=== PATIENT | male | born 1965 | race Caucasian/White ===

== ENCOUNTER 2017-07-01 16:13 | Emergency (ER) | payer MEDICAID ==
[~2017-07-01] VITALS: Ht 160 cm; Wt 78.0 kg
[2017-07-01 16:17] VITALS: Ht 160 cm; Wt 78.0 kg
[2017-07-01 19:13] LABS: BASOPHILS % 0.4 % (0.0-2.0); EOSINOPHILS # 0.5 10^3/ul (0.0-0.5); EOSINOPHILS % 4.3 % (0.0-7.0); HEMATOCRIT 47.4 % (42.0-52.0); HEMOGLOBIN 15.4 g/dl (14.0-18.0); LYMPHOCYTES % 28.4 % (15.0-51.0); MEAN CORPUSCULAR HEMOGLOBIN 29.3 pg (29.0-33.0); MEAN CORPUSCULAR HGB CONC 32.5 g/dl (32.0-37.0); MEAN CORPUSCULAR VOLUME 90.3 fl (82.0-101.0); MEAN PLATELET VOLUME 10.9 fl (7.4-10.4); MONOCYTE # 0.7 10^3/ul (0.3-0.9); MONOCYTES % 6.6 % (0.0-11.0); NEUTROPHIL # 6.3 10^3/ul (1.6-7.5); NEUTROPHILS % 59.9 % (39.0-77.0); PLATELET COUNT 294 10^3/UL (140-415); RED BLOOD COUNT 5.25 10^6/ul (4.70-6.10); RED CELL DISTRIBUTION WIDTH 13.3 % (11.5-14.5); WHITE BLOOD COUNT 10.6 10^3/ul (4.8-10.8)
--- NOTE | 2017-07-01 19:19 | ERD ---
ER Documentation Chief Complaint Date/Time DATE: 07/01/17 TIME: 19:02 Chief Complaint bay today, back pain rad left leg intermittent x 1 week HPI 52-year-old male presents here to emergency department for complaints of multiple complaints, patient is complaining of headache for 1 week, lower back pain neck pain, lower back pain radiates to the left lower leg, that it can radiate to the left arm. Patient does admit to be having to go through stress lately. Patient's complaint of headache throbbing pain, back pain throbbing pain, lower back pain throbbing pain, 6/10 scale, worse upon movement of affected joints. Patient denies any loss of consciousness. Patient denies any dizziness. Patient denies any blurred vision. Patient denies any numbness or tingling. ROS All systems reviewed and are negative except as per history of present illness. Medications Home Meds Reported Medications [none] Unknown Strength No Conflict Check 07/01/17 Allergies Allergies: Coded Allergies: No Known Allergy (Unverified , 07/01/17) PMhx/Soc Medical and Surgical Hx: pt denies Medical Hx, pt denies Surgical Hx History of Surgery: No Anesthesia Reaction: No Hx Neurological Disorder: No Hx Respiratory Disorders: No Hx Cardiac Disorders: No Hx Psychiatric Problems: No Hx Miscellaneous Medical Probl: No Hx Alcohol Use: No Hx Substance Use: No Hx Tobacco Use: Yes Smoking Status: Current some day smoker FmHx Family History: No coronary disease, No diabetes, No other Physical Exam Vitals Vital Signs Date Time Temp Pulse Resp B/P Pulse Ox O2 Delivery O2 Flow Rate FiO2 07/01/17 16:17 98.1 70 18 124/76 99 Physical Exam GENERAL: The patient is well developed and appropriate for usual state of health, in no apparent distress. CHEST: Clear to auscultation bilaterally. There are no rales, wheezes or rhonchi. HEART: Regular rate and rhythm. No murmurs, clicks, rubs or gallops. No S3 or S4. ABDOMEN: Soft, nontender and nondistended. Good bowel sounds. No rebound or guarding. No gross peritonitis. No gross organomegaly or masses. No Guzman sign or McBurney point tenderness. BACK: No midline or flank tenderness. EXTREMITIES: Equal pulses bilaterally. There is no peripheral clubbing, cyanosis or edema. No focal swelling or erythema. Full range of motion. Grossly neurovascularly intact. NEURO: Alert and oriented. Cranial nerves 2-12 intact. Motor strength in all 4 extremities with 5/5 strength. Sensation grossly intact. Normal speech and gait. SKIN: There is no apparent rash or petechia. The skin is warm and dry. HEMATOLOGIC AND LYMPHATIC: There is no evidence of excessive bruising or lymphedema. No gross cervical, axillary, or inguinal lymphadenopathy. Result Diagram: 07/01/17189907/01/171899 Results 24 hrs Laboratory Tests Test 07/01/17 19:00 White Blood Count 10.610^3/ul Red Blood Count 5.2510^6/ul Hemoglobin 15.4g/dl Hematocrit 47.4% Mean Corpuscular Volume 90.3fl Mean Corpuscular Hemoglobin 29.3pg Mean Corpuscular Hemoglobin Concent 32.5g/dl Red Cell Distribution Width 13.3% Platelet Count 59135^3/UL Mean Platelet Volume 10.9fl Neutrophils % 59.9% Lymphocytes % 28.4% Monocytes % 6.6% Eosinophils % 4.3% Basophils % 0.4% Nucleated Red Blood Cells % 0.0/100WBC Neutrophils # 6.310^3/ul Lymphocytes # 3.010^3/ul Monocytes # 0.710^3/ul Eosinophils # 0.510^3/ul Basophils # 0.010^3/ul Nucleated Red Blood Cells # 0.010^3/ul Sodium Level 141mmol/L Potassium Level 4.2mmol/L Chloride Level 103mmol/L Carbon Dioxide Level 28mmol/L Anion Gap 14 Blood Urea Nitrogen 18mg/dl Creatinine 0.79mg/dl Glucose Level 95mg/dl Calcium Level 9.4mg/dl Total Bilirubin 0.4mg/dl Direct Bilirubin 0.00mg/dl Indirect Bilirubin 0.4mg/dl Aspartate Amino Transf (AST/SGOT) 23IU/L Alanine Aminotransferase (ALT/SGPT) 44IU/L Alkaline Phosphatase 75IU/L Troponin I < 0.012ng/ml Total Protein 8.1g/dl Albumin 4.7g/dl Globulin 3.40g/dl Albumin/Globulin Ratio 1.38 EKG was done, read by me and is sinus bradycardia at a rate of 59, normal axis, there is no ST changes or changes in the EKG that indicates any cardiac emergencies at this time. Patient's EKG was also reviewed by Dr. Blakely. Impression: no acute findings on EKG PROCEDURE: CT brain without contrast CLINICAL INDICATION: Headache TECHNIQUE: CT of the brain without contrast was performed on a multidetector CT scanner, with multiplanar reformats. One or more of the following dose reduction techniques were used: Automated exposure control, adjustment in mA and / or kV according to patient size, use of iterative reconstructive technique. CTDIvol = 44 mGy; DLP = 720 mGy-cm. COMPARISON: None available FINDINGS: No acute intracranial hemorrhage is identified. No extra-axial fluid collection is seen. There is no mass effect. No midline shift is identified. Ventricles and sulci are within normal limits for size and configuration. The density of the brain is within normal limits. Thompson-white differentiation is preserved. Calvarium and skull base are intact. Mastoid air cells and imaged paranasal sinuses grossly clear. 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 IMPRESSION: Unremarkable noncontrast CT of the brain. RPTAT: HESO .Tae Garcia MD, MD Date Time Electronically viewed and signed by .Tae Garcia MD, MD on 07/01/2017 20:25 .O/ CC: PELON BULLOCK NP PROCEDURE: CT cervical spine without contrast. CLINICAL INDICATION: Neck pain radiating down left arm TECHNIQUE: CT of the cervical spine without contrast was performed on a multidetector CT scanner, with multiplanar reformats. One or more of the following dose reduction techniques were used: Automated exposure control, adjustment in mA and / or kV according to patient size, use of iterative reconstructive technique. CTDIvol = 22 mGy and DLP = 574 mGy-cm. COMPARISON: None available. FINDINGS: No fracture or dislocation is identified. There is straightening of the lordosis of the cervical spine. Alignment is intact. The vertebral bodies are maintained in height. Mild anterior atlantoaxial joint degenerative changes are seen. There are anterior osteophytes C4-5 through C6-7. There is mild disc space narrowing at C5-6 and C6-7. C2-3: There is mild posterior disc bulging. No central canal stenosis or foraminal narrowing is identified. C3-4: There is a mild posterior disc osteophyte. No central canal stenosis or foraminal narrowing is identified. C4-5: There is a 3 mm central disc protrusion with mild central canal stenosis identified. No foraminal narrowing is identified. C5-6: There is a posterior disk/osteophyte with mild central canal stenosis identified. There are uncovertebral osteophytes and facet arthropathy with mild right, moderate to severe left foraminal narrowing. C6-7: There is a posterior disk/osteophyte with mild central canal stenosis identified. There are uncovertebral osteophytes and facet arthropathy with mild left foraminal narrowing. C7-T1: No disc bulge or herniation is identified. There is no central canal stenosis or foraminal narrowing. IMPRESSION: 1. No fracture/dislocation. 2. Cervical spondylosis/degenerative enthesopathy as described above. 3. Mild central canal stenosis C3-4, C4-5, C5-6. 4. Foraminal narrowing detailed above, most pronounced, moderate to severe at C5-6 on the left. RPTAT: HESO .Tae Garcia MD, Date Time Electronically viewed and signed by .Tae Garcia MD, on 07/01/2017 20:32 .O/ CC: PELON BULLOCK [employer] PROCEDURE: XR Chest. CLINICAL INDICATION: Left arm pain and shortness of breath TECHNIQUE: Single AP view of the chest were obtained COMPARISON: None FINDINGS: Low lung volumes accentuate the intrathoracic structures The heart and mediastinum are within normal limits. The pulmonary vasculature are unremarkable. The aorta is grossly unremarkable. There is no lung consolidation, pleural effusion or pneumothorax. Degenerative changes are seen within the thoracic spine. There is no acute osseous abnormality. IMPRESSION: No acute disease. Low lung volumes. RPTAT: AA .Olman Call MD, MD Date Time Electronically viewed and signed by .Olman Call MD, MD on 07/01/2017 20:25 .J/ CC: PELON BULLOCK NP PROCEDURE: CT Lumbar Spine. CLINICAL INDICATION: Lower back pain radiating down left side. TECHNIQUE: Noncontrast CT of the lumbar spine was performed with multiplanar reformatted images generated from the axial acquired data. The administered radiation dose was CTDI vol = 38.52 mGy, DLP = 1040 21.13 mGy-cm. One or more of the following dose reduction techniques were used: Automated exposure control , Adjustment of the mA and/or kV according to patient size, or Use of iterative reconstruction technique. COMPARISON: There are no similar studies submitted for comparison. FINDINGS: There is normal lumbar lordosis. The vertebral body heights are maintained. There is no destructive osseous lesion. There is no acute fracture. The anterior posterior diameter of the spinal canal is 11 mm compatible with congenital spinal canal stenosis. T12-L1 : There is moderate disc space narrowing. There is no disc herniation or spinal canal stenosis. There is no bilateral foraminal stenosis. L1-L2 : There is moderate disc space narrowing. There is 1 mm broad-based disc bulge and mild bilateral facet arthropathy without spinal canal or bilateral foraminal stenosis. L2-L3 : There is severe disc space narrowing. There is 1 mm retrolisthesis with a 4 mm broad-based disc bulge with mild bilateral facet arthropathy and ligamentum flavum infolding causing moderate spinal canal stenosis. There is moderate bilateral foraminal stenosis contacting the exiting bilateral L2 nerve roots. L3-L4 : There is moderate disc space narrowing. There is trace retrolisthesis with a 4 mm broad-based disc bulge and mild by facet arthropathy ligamentum flavum infolding causing moderate spinal canal stenosis. There is mild to moderate left with severe right foraminal stenosis impinging the exiting right L3 nerve root. L4-L5 : There is moderate disc space narrowing. There is trace retrolisthesis with a 3 mm circumferential disc osteophyte complex with moderate bilateral facet arthropathy ligamentum flavum infolding causing moderate spinal canal stenosis. There is moderate to severe bilateral foraminal stenosis impinging the exiting bilateral L4 nerve roots. L5-S1 : There is moderate to severe disc space narrowing and vacuum disc phenomenon. There is a 4 mm circumferential disc osteophyte complex mildly effacing the bilateral lateral recess with moderate bilateral facet arthropathy causing moderate spinal canal stenosis. There is severe bilateral foraminal stenosis impinging the exiting bilateral L5 nerve roots. The sacroiliac joints are intact. IMPRESSION: 1. No acute fracture. 2. Congenital spinal canal stenosis. 3. Multilevel bilateral foraminal stenosis contacting the exiting bilateral L2, impinging the exiting right L3, impinging the exiting bilateral for, impinging the exiting bilateral L5 nerve roots as detailed above. 4. Moderate L2-L3 to L5-S1 spinal canal stenosis. Further findings as detailed above. RPTAT: HVF .Rishabh Matthew MD, MD Date Time Electronically viewed and signed by .Rishabh Matthew MD, MD on 07/01/2017 20:29 .F/ CC: PELON BULLOCK [employer] Procedures/MDM Medical Decision Making: Patient symptoms nonspecific at this time, most likely pain in the left arm and the left lower leg from degenerative disc disease noted , possible nerve pain. there is low suspicion for cardiopulmonary emergencies at this time. Patient has low risk factors. EKG is normal, there is no changes in the EKG that indicates cardiac emergencies. Chest X-ray does not show cardiopulmonary emergencies at this time. There is low suspicion for aortic aneurysm, myocardial infarction, pneumothorax, pleural effusion, pulmonary embolism, or any other cardiopulmonary emergencies at this time. Cardiac markers are normal. Patient symptoms of headache are consistent with migraine headache, possible tension headache. There is low suspicion for neurological emergencies at this time since patients neurologic exam is normal. Patient did not have any altered level consciousness, vomiting, changes in balance or memory and did not have any head injury. Patients CT scan of the head does not show any neurological emergencies at this time. Patient was given for gabapentin, ibuprofen, [place], is advised to follow-up with primary care doctor in 2-3 days for reevaluation of symptoms. Patient was advised to return to emergency department for any worsening symptoms. Dispostion: Home. Stable Disclaimer: Inadvertent spelling and grammatical errors are likely due to EHR/ dictation software use and do not reflect on the overall quality of patient care. Also, please note that the electronic time recorded on this note does not necessarily reflect the actual time of the patient encounter. Dispostion: Home. Stable Disclaimer: Inadvertent spelling and grammatical errors are likely due to EHR/ dictation software use and do not reflect on the overall quality of patient care. Also, please note that the electronic time recorded on this note does not necessarily reflect the actual time of the patient encounter. Departure Diagnosis: Primary Impression: Cervical radiculopathy Additional Impressions: Back pain Back pain location: low back pain Chronicity: acute Back pain laterality: bilateral Sciatica presence: with sciatica Sciatica laterality: sciatica of left side Qualified Code: M54.42 - Acute bilateral low back pain with left- sided sciatica Degenerative disc disease Spinal region: lumbosacral Qualified Code: M51.37 - Degeneration of intervertebral disc of lumbosacral region Head ache Headache type: unspecified Headache chronicity pattern: acute headache Intractability: not intractable Qualified Code: R51 - Acute nonintractable headache, unspecified headache type Condition: Stable Patient Instructions: Back Pain W/ Sciatica, Degenerative Disk Disease, Radiculopathy, Cervical, Self-Care for Headaches PELON BULLOCK NP Jul 01, 2017 19:12
[2017-07-01 19:32] LABS: ALANINE AMINOTRANSFERASE 44 IU/L (13-69); ALBUMIN 4.7 g/dl (3.3-4.9); ALBUMIN/GLOBULIN RATIO 1.38; ALKALINE PHOSPHATASE 75 IU/L (42-121); ANION GAP 14 (8-16); ASPARTATE AMINO TRANSFERASE 23 IU/L (15-46); BILIRUBIN,INDIRECT 0.4 mg/dl (0-1.1); BILIRUBIN,TOTAL 0.4 mg/dl (0.2-1.3); BLOOD UREA NITROGEN 18 mg/dl (7-20); CALCIUM 9.4 mg/dl (8.4-10.2); CARBON DIOXIDE 28 mmol/L (21-31); CHLORIDE 103 mmol/L (97-110); CREATININE 0.79 mg/dl (0.61-1.24); GLUCOSE 95 mg/dl (70-220); POTASSIUM 4.2 mmol/L (3.5-5.1); SODIUM 141 mmol/L (135-144); TOTAL PROTEIN 8.1 g/dl (6.1-8.1)
[2017-07-01 19:43] LABS: TROPONIN-I < 0.012 ng/ml (0.00-0.12)
--- NOTE | 2017-07-01 20:25 | RADRPT ---
PROCEDURE: XR Chest. CLINICAL INDICATION: Left arm pain and shortness of breath TECHNIQUE: Single AP view of the chest were obtained COMPARISON: None FINDINGS: Low lung volumes accentuate the intrathoracic structures The heart and mediastinum are within normal limits. The pulmonary vasculature are unremarkable. The aorta is grossly unremarkable. There is n o lung consolidation, pleural effusion or pneumothorax. Degenerative changes are seen within the th oracic spine. There is no acute osseous abnormality. IMPRESSION: No acute disease. Low lung volumes. RPTAT: AA .Olman Call MD, Date Time Electronically viewed and signed by .Olman Call MD, MD on 07/01/2017 20:25 .Roz/
--- NOTE | 2017-07-01 20:26 | RADRPT ---
PROCEDURE: CT brain without contrast CLINICAL INDICATION: Headache TECHNIQUE: CT of the brain without contrast was performed on a multidetector CT scanner, with multi planar reformats. One or more of the following dose reduction techniques were used: Automated expos ure control, adjustment in mA and / or kV according to patient size, use of iterative reconstructive technique. CTDIvol = 44 mGy; DLP = 720 mGy-cm. COMPARISON: None available FINDINGS: No acute intracranial hemorrhage is identified. No extra-axial fluid collection is seen. There is no mass effect. No midline shift is identified. Ventricles and sulci are within normal limits for size and configuration. The density of the brain is within normal limits. Thompson-white differentiation is preserved. Calvarium and skull base are intact. Mastoid air cells and imaged paranasal sinuses grossly clear. 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 IMPRESSION: Unremarkable noncontrast CT of the brain. RPTAT: HESO .Tae Garcia MD, Date Time Electronically viewed and signed by .Tae Garcia MD, on 07/01/2017 20:25 .O/
--- NOTE | 2017-07-01 20:30 | RADRPT ---
PROCEDURE: CT Lumbar Spine. CLINICAL INDICATION: Lower back pain radiating down left side. TECHNIQUE: Noncontrast CT of the lumbar spine was performed with multiplanar reformatted images gen erated from the axial acquired data. The administered radiation dose was CTDI vol = 38.52 mGy, DLP = 1040 21.13 mGy-cm. One or more of the following dose reduction techniques were used: Automated exp osure control, Adjustment of the mA and/or kV according to patient size, or Use of iterative reconst ruction technique. COMPARISON: There are no similar studies submitted for comparison. FINDINGS: There is normal lumbar lordosis. The vertebral body heights are maintained. There is no destructive osseous lesion. There is no acute fracture. The anterior posterior diameter of the spinal canal is 11 mm compatible with congenital spinal canal stenosis. T12-L1 : There is moderate disc space narrowing. There is no disc herniation or spinal canal stenosi s. There is no bilateral foraminal stenosis. L1-L2 : There is moderate disc space narrowing. There is 1 mm broad-based disc bulge and mild bilate ral facet arthropathy without spinal canal or bilateral foraminal stenosis. L2-L3 : There is severe disc space narrowing. There is 1 mm retrolisthesis with a 4 mm broad-based d isc bulge with mild bilateral facet arthropathy and ligamentum flavum infolding causing moderate spi nal canal stenosis. There is moderate bilateral foraminal stenosis contacting the exiting bilateral L2 nerve roots. L3-L4 : There is moderate disc space narrowing. There is trace retrolisthesis with a 4 mm broad-base d disc bulge and mild by facet arthropathy ligamentum flavum infolding causing moderate spinal canal stenosis. There is mild to moderate left with severe right foraminal stenosis impinging the exiting right L3 nerve root. L4-L5 : There is moderate disc space narrowing. There is trace retrolisthesis with a 3 mm circumfere ntial disc osteophyte complex with moderate bilateral facet arthropathy ligamentum flavum infolding causing moderate spinal canal stenosis. There is moderate to severe bilateral foraminal stenosis imp inging the exiting bilateral L4 nerve roots. L5-S1 : There is moderate to severe disc space narrowing and vacuum disc phenomenon. There is a 4 mm circumferential disc osteophyte complex mildly effacing the bilateral lateral recess with moderate bilateral facet arthropathy causing moderate spinal canal stenosis. There is severe bilateral forami nal stenosis impinging the exiting bilateral L5 nerve roots. The sacroiliac joints are intact. IMPRESSION: 1. No acute fracture. 2. Congenital spinal canal stenosis. 3. Multilevel bilateral foraminal stenosis contacting the exiting bilateral L2, impinging the exitin g right L3, impinging the exiting bilateral for, impinging the exiting bilateral L5 nerve roots as d etailed above. 4. Moderate L2-L3 to L5-S1 spinal canal stenosis. Further findings as detailed above. RPTAT: HVF .Rishabh Matthew MD, Date Time Electronically viewed and signed by .Rishabh Matthew MD, on 07/01/2017 20:29 .F/
--- NOTE | 2017-07-01 20:32 | RADRPT ---
PROCEDURE: CT cervical spine without contrast. CLINICAL INDICATION: Neck pain radiating down left arm TECHNIQUE: CT of the cervical spine without contrast was performed on a multidetector CT scanner, w ith multiplanar reformats. One or more of the following dose reduction techniques were used: [employer] emerald exposure control, adjustment in mA and / or kV according to patient size, use of iterative recon structive technique. CTDIvol = 22 mGy and DLP = 574 mGy-cm. COMPARISON: None available. FINDINGS: No fracture or dislocation is identified. There is straightening of the lordosis of the cervical sp ine. Alignment is intact. The vertebral bodies are maintained in height. Mild anterior atlantoax ial joint degenerative changes are seen. There are anterior osteophytes C4-5 through C6-7. There is mild disc space narrowing at C5-6 and C6-7. C2-3: There is mild posterior disc bulging. No central canal stenosis or foraminal narrowing is id entified. C3-4: There is a mild posterior disc osteophyte. No central canal stenosis or foraminal narrowing is identified. C4-5: There is a 3 mm central disc protrusion with mild central canal stenosis identified. No fora froilan narrowing is identified. C5-6: There is a posterior disk/osteophyte with mild central canal stenosis identified. There are u ncovertebral osteophytes and facet arthropathy with mild right, moderate to severe left foraminal na rrowing. C6-7: There is a posterior disk/osteophyte with mild central canal stenosis identified. There are uncovertebral osteophytes and facet arthropathy with mild left foraminal narrowing. C7-T1: No disc bulge or herniation is identified. There is no central canal stenosis or foraminal n arrowing. IMPRESSION: 1. No fracture/dislocation. 2. Cervical spondylosis/degenerative enthesopathy as described above. 3. Mild central canal stenosis C3-4, C4-5, C5-6. 4. Foraminal narrowing detailed above, most pronounced, moderate to severe at C5-6 on the left. RPTAT: HESO .Tae Garcia MD, MD Date Time Electronically viewed and signed by .Tae Garcia MD, MD on 07/01/2017 20:32 .O/
[2017-07-01] MEDS ORDERED: IBUP-1542 PO (21:05)
[2017-07-01] MEDS ORDERED: HYDR-906 PO (21:05)
[2017-07-01] MEDS ORDERED: GABA300C16 PO (21:05)
== END 2017-07-01 21:09 | disposition home or self-care (01) ==
LOC: FTE 16:13
DX: M54.12 Radiculopathy, cervical region (principal); M54.42 Lumbago with sciatica, left side; M51.37 Other intervertebral disc degeneration, lumbosacral region; F17.210 Nicotine dependence, cigarettes, uncomplicated; R06.02 Shortness of breath
CPT/HCPCS: 36415; 70450; 71010; 72125; 72131; 80053; 84484; 85025; Z7502

== ENCOUNTER 2018-01-15 11:48 | Emergency (ER) | END 2018-01-15 13:32 | disposition home or self-care (01) ==

== ENCOUNTER 2019-05-18 01:02 | Emergency (ER) | payer SELFPAY ==
[~2019-05-18] VITALS: Ht 167.6 cm; Wt 97.4 kg
[~2019-05-18 01:02] MED LIST: BEN25 PO; CEPH-443 PO; GABA300C16 PO; HYDR-4011 PO; IBUP-1542 PO; PRED20TA PO
[2019-05-18 01:06] VITALS: BP 125/77; PULSE 83; RESP 19; Ht 167.6 cm; Wt 97.4 kg
[2019-05-18] MEDS ORDERED: DIPHENHYDRAMINE 25 MG CAP PO ONE (01:30)
[2019-05-18] MEDS ORDERED: predniSONE 20 MG TAB PO ONE (01:30)
== END 2019-05-18 01:51 | disposition home or self-care (01) ==
LOC: FTE 01:02
DX: S50.861A Insect bite (nonvenomous) of right forearm, initial encounter (principal); S50.862A Insect bite (nonvenomous) of left forearm, initial encounter; W57.XXXA Bitten or stung by nonvenomous insect and other nonvenomous arthropods, initial encounter; Y92.9 Unspecified place or not applicable; Z87.891 Personal history of nicotine dependence
CPT/HCPCS: 99283; J7512